=== PATIENT | female | born 1985 | race Caucasian/White ===

== ENCOUNTER 2019-03-25 17:58 | Inpatient (IN) | payer OTHER ==
[2019-03-25] MEDS ORDERED: DINOPROSTONE 10 MG VAGINAL INSERT.SR PV PRN (18:26)
[2019-03-25] MEDS ORDERED: RINGERS SOLUTION,LACTATED 300 ML IV ONE (18:26)
[2019-03-25] MEDS ORDERED: OXYTOCIN/NORMAL SALINE 20 UNIT/1,000 ML RTUINJ IV PRN (18:26)
[2019-03-25 19:06] LABS: APPEARANCE,URINE SLIGHTLY-CLOUDY; BILIRUBIN,URINE NEGATIVE (NEGATIVE); COLOR,URINE YELLOW; GLUCOSE, URINE NEGATIVE (NEGATIVE); KETONES,URINE NEGATIVE (NEGATIVE); LEUKOCYTE ESTERASE,URINE LARGE (NEGATIVE); NITRITE,URINE NEGATIVE (NEGATIVE); PROTEIN,URINE NEGATIVE (NEGATIVE); URINE SPECIFIC GRAVITY 1.024; UROBILINOGEN,URINE NEGATIVE mg/dL (<2.0)
[2019-03-25 19:22] LABS: URINE AMPHETAMINES SCREEN NEGATIVE; URINE BARBITURATES SCREEN NEGATIVE; URINE BENZODIAZEPINES SCREEN NEGATIVE; URINE COCAINE SCREEN NEGATIVE; URINE MARIJUANA (THC) SCREEN NEGATIVE; URINE METHADONE SCREEN NEGATIVE; URINE PHENCYCLIDINE SCREEN NEGATIVE
[2019-03-25 19:23] LABS: ABSOLUTE BASOPHILS # (AUTO) 0.1 10^3/uL (0.0-0.2); ABSOLUTE MONOCYTES (AUTO) 0.8 10^3/uL (0.1-1.4); ABSOLUTE NEUT (AUTO) 7.8 10^3/uL (1.7-8.2); BASOPHILS % (AUTO) 0.6 % (0-2); EOSINOPHILS % (AUTO) 0.4 % (0-6); HEMATOCRIT 35.5 % (36.0-47.0); HEMOGLOBIN 12.1 g/dL (12.0-15.5); LYMPHOCYTES % (AUTO) 19.1 % (13-45); MEAN CORPUSCULAR HEMOGLOBIN 31.4 pg (27.0-33.4); MEAN CORPUSCULAR HGB CONC 33.9 g/dL (32.0-36.0); MEAN CORPUSCULAR VOLUME 92 fl (80-97); MONOCYTES % (AUTO) 7.1 % (3-13); PLATELET COUNT 280 10^3/uL (150-450); RED BLOOD COUNT 3.85 10^6/uL (3.72-5.28); RED CELL DISTRIBUTION WIDTH 13.8 % (11.5-14.0); SEGMENTED NEUTROPHILS % (AUTO) 72.8 % (42-78); TOTAL CELLS COUNTED % (AUTO) 100 %; WHITE BLOOD COUNT 10.7 10^3/uL (4.0-10.5)
[2019-03-25 19:44] LABS: ALBUMIN 3.4 g/dL (3.5-5.0); ALKALINE PHOSPHATASE 96 U/L (38-126); ANION GAP 10 (5-19); ASPARTATE AMINO TRANSFERASE 24 U/L (14-36); BILIRUBIN,DIRECT 0.2 mg/dL (0.0-0.4); BILIRUBIN,TOTAL 0.3 mg/dL (0.2-1.3); BLOOD UREA NITROGEN 10 mg/dL (7-20); CALCIUM 8.8 mg/dL (8.4-10.2); CARBON DIOXIDE 20 mmol/L (22-30); CHLORIDE 104 mmol/L (98-107); GLUCOSE 72 mg/dL (75-110); POTASSIUM 4.9 mmol/L (3.6-5.0); TOTAL PROTEIN 5.9 g/dL (6.3-8.2)
[2019-03-25] MEDS ORDERED: DINOPROSTONE 10 MG VAGINAL INSERT.SR ONE (19:59)
--- NOTE | 2019-03-25 21:08 | Admission Physical ---
Datetime Report Generated by CPN: 03/25/2019 21:08 CURRENT ADMISSION Chief Complaint: Scheduled Induction of Labor Indication for Induction- Other: Cholestasis of Admit Impression : Term, Intrauterine Admit Plan: Initiate Labor Induction Protocol ALLERGIES Medication Allergies: Yes Medication Allergies: hydrocodone/Generalized colton (03/25/2019); oxycodone/Generalized colton (03/25/2019); acetaminophen/Generalized colton (03/25/2019) Latex: No Latex Allergies Food Allergies: none Environmental Allergies: none OBSTETRICAL HISTORY EDC: 04/02/2019 00:00 : 2 Para: 0 Term: 0 : 0 SAB: 1 IAB: 0 Ectopic: 0 Livin Cesareans: 0 VBACs: 0 Multiple Births: 0 Gestational Diabetes: No Rh Sensitization: No Incompetent Cervix: No KAMLA: No Infertility: No ART Treatment: No Uterine Anomaly: No IUGR: No Hx Previous C/S: No Macrosomia: No Hx Loss/Stillborn: No PIH: No Hx : No Placenta Previa/Abruption: No Depression/PP Depression: No PTL/PROM: No Post Hemorrhage: No Current Procedures: Ultrasound Obstetrical History Comments: G-1 SAB G-2 current cholestasis elevated bile acids SEE RECORDS Alcohol: No Marijuana : No Cocaine: No Other Illicit Drugs: No Cigarettes: Never Smoker. 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 Hand Surgery: Yes Heart Disease: No Hosp/Surgery: Yes Autoimmune Disorder: No Anesthetic Complications: No Kidney Disease: No Abnormal Pap Smear: Yes Neuro/Epilepsy: No Psychiatric Disorders: No Other Medical Diseases: Yes Hepatitis/Liver Disease: No Significant Family History: No Varicosities/Phlebitis: No Trauma/Violence : No Thyroid Dysfunction: No Medical History Comments: h/o gastric bypass, LEEP, cholestasis elevated bile acid INFECTIOUS HISTORY Gonorrhea: No Genital Herpes: Yes Chlamydia: No Tuberculosis: No Syphilis: No Hepatitis: No HIV/AIDS Exposure: No Rash or Viral Illness: No HPV: No Infectious History Comments: 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 PHYSICAL EXAM General: Normal HEENT: Normal Neurologic: Normal Thyroid: Normal Heart: Normal Lungs: Normal Breast: Normal Back: Normal Abdomen: Normal Genitourinary Exam: Normal Extremities: Normal DTRs: Normal Pelvic Type: Adequate Vital Signs: Reviewed; Within Normal Limits VAGINAL EXAM Dilatation: 1 Effacement: 50% MEMBRANES Membranes: Intact FETUS A EGA: 38.6 Monitoring: External US FHR- Baseline: 120s Variability: Moderate 6-25bpm Accelerations: 15X15 Decelerations: None FHR Category: Category I FHR Comments: none currently--one decel upon arrival Admit Comment: Pt here for a scheduled labor induction sec to Cholestasis of . She reports good movement. She is GBS Negative. PLANS FOR LABOR AND DELIVERY Labor and Delivery: None Pain Management: Medications; Epidural Feeding Preference: Breast Benefit of Breast Feed Discussed: Yes Circumcision: N/A INFORMED CONSENT Signature: with User ID: [email or web address]
[2019-03-25] MEDS ORDERED: OXYTOCIN 10 UNIT/ML VIAL ONE (22:43)
[2019-03-25] MEDS ORDERED: MISOPROSTOL 0.2 MG TABLET ONE (22:43)
[2019-03-25] MEDS ORDERED: OXYTOCIN/NORMAL SALINE 20 UNIT/1,000 ML RTUINJ ONE (22:44)
[2019-03-25] MEDS ORDERED: LIDOCAINE 1% INJ-PF (10 MG/ML) 30 ML SDV ONE (22:44)
[2019-03-25] MEDS ORDERED: NALBUPHINE HCL INJ 10 MG/1 ML AMPULE ONE (23:28)
[2019-03-26] MEDS ORDERED: NALBUPHINE HCL INJ 10 MG/1 ML AMPULE INJ ONE (00:30)
[2019-03-26] MEDS: RINGERS SOLUTION,LACTATED 1,000 ML IV PRN ×3 (01:13→08:15)
[2019-03-26] MEDS ORDERED: FENTANYL/BUPIVACAINE/NS/PF 300 MCG/150 ML RTUINJ EPI ONE (07:40)
[2019-03-26] MEDS ORDERED: BUPIVACAINE HCL 0.25 % INJ/PF (2.5 MG/1 ML) 30 ML VIAL ONE (07:40)
[2019-03-26] MEDS ORDERED: EPHEDRINE SULFATE INJ 50 MG/1 ML AMPULE ONE (07:40)
[2019-03-26] MEDS ORDERED: NALBUPHINE HCL INJ 10 MG/1 ML AMPULE ONE (14:05)
[2019-03-26] MEDS ORDERED: OXYTOCIN/NORMAL SALINE 20 UNIT/1,000 ML RTUINJ IV PRN (14:43)
[2019-03-26] MEDS ORDERED: MEASLES,MUMPS&RUBELLA VACC/PF 0.5 ML VIAL SUBCUT PRN (14:43)
[2019-03-26] MEDS ORDERED: MAGNESIUM HYDROXIDE SUSP 30 ML UDCUP PO PRN (14:43)
[2019-03-26] MEDS ORDERED: BENZOCAINE/MENTHOL AEROSOL SPRAY 56 ML TOP PRN (14:43)
[2019-03-26] MEDS ORDERED: NA PHOS,M-B/NA PHOS,DI-BA (ADULT) 133 ML ENEMA PR PRN (14:43)
[2019-03-26] MEDS ORDERED: DIPHENHYDRAMINE HCL 25 MG CAPSULE PO PRN (14:43)
[2019-03-26] MEDS ORDERED: PROMETHAZINE HCL 25 MG TABLET PO PRN (14:43)
[2019-03-26] MEDS ORDERED: PROMETHAZINE HCL INJ 25 MG/1 ML VIAL IV PRN (14:43)
[2019-03-26] MEDS ORDERED: GLYCERIN/WITCH HAZEL LEAF 1 EACH MED..WIPE TP PRN (14:43)
[2019-03-26] MEDS ORDERED: MISOPROSTOL 0.2 MG TABLET PR PRN (14:43)
[2019-03-26] MEDS ORDERED: PSEUDOEPHEDRINE HCL 30 MG TABLET PO PRN (14:43)
[2019-03-26] MEDS ORDERED: DIBUCAINE 1% OINTMENT 56 GM TP PRN (14:43)
[2019-03-26] MEDS ORDERED: DIPH/PERTUSS(ACELL)/TETANUS VAC/PF 0.5 ML SYR (>=10YO) IM PRN (14:43)
[2019-03-26] MEDS ORDERED: PROMETHAZINE HCL 25 MG SUPP.RECT PR PRN (14:43)
[2019-03-26] MEDS: DOCUSATE SODIUM 100 MG CAPSULE PO SCH (17:20)
[2019-03-26] MEDS: FERROUS SULFATE 325 MG TABLET PO SCH (17:21)
[2019-03-26] MEDS: FAMOTIDINE 20 MG TABLET PO SCH (22:30)
[2019-03-27 07:05] LABS: HEMOGLOBIN 10.6 g/dL (12.0-15.5); MEAN CORPUSCULAR HEMOGLOBIN 31.7 pg (27.0-33.4); MEAN CORPUSCULAR HGB CONC 34.2 g/dL (32.0-36.0); MEAN CORPUSCULAR VOLUME 93 fl (80-97); PLATELET COUNT 224 10^3/uL (150-450); RED BLOOD COUNT 3.34 10^6/uL (3.72-5.28); RED CELL DISTRIBUTION WIDTH 13.9 % (11.5-14.0); WHITE BLOOD COUNT 14.1 10^3/uL (4.0-10.5)
[2019-03-27 07:38] LABS: IGG SUBCLASS 1 351 mg/dL (248-810); IGG SUBCLASS 2 249 mg/dL (130-555); IGG SUBCLASS 3 27 mg/dL (15-102); IMMUNOGLOBULIN G 665 mg/dL (700-1600)
[2019-03-27] MEDS: ACETAMINOPHEN 325 MG TABLET PO PRN ×2 (08:39→21:12)
[2019-03-27] MEDS: PRENATAL VITAMIN W DHA CAPSULE PO SCH (09:23)
[2019-03-27] MEDS: DOCUSATE SODIUM 100 MG CAPSULE PO SCH ×2 (09:24→18:11)
[2019-03-27] MEDS: FERROUS SULFATE 325 MG TABLET PO SCH ×2 (09:24→18:11)
[2019-03-27] MEDS: FAMOTIDINE 20 MG TABLET PO SCH ×2 (09:24→21:13)
[2019-03-27] MEDS: SENNOSIDES/DOCUSATE 8.6-50 MG 1 EACH TABLET PO SCH (09:24)
[2019-03-27 09:36] LABS: IMMUNOGLOBULIN M 89 mg/dL (26-217)
--- NOTE | 2019-03-27 11:28 | PDOC PROGRESS REPORT ---
Subjective-OB Progress Note for:: 03/27/19 Subjective: 33yo s/p ppd1. Pt ambulating and voiding without difficulty. Reports pain well controlled with medication and vaginal soreness, no concerns at this time Physical Exam (OB) Vital Signs: Temp Pulse Resp BP Pulse Ox 97.7 F 82 17 119/76 98 03/27/19 07:30 03/27/19 07:30 03/27/19 07:30 03/27/19 07:30 03/27/19 07:30 Intake & Output 03/26/19 03/27/19 03/28/19 06:59 06:59 06:59 Intake Total 640 240 200 Balance 640 240 200 Weight 72.7 kg - General General Appearance: Appears well In distress: None - PIH/Pre-Eclampsia DTR's: 1 + Clonus: Negative Headache: Absent Epigastric Pain: No Visual Changes: No - Episiotomy/Laceration Site Condition: Well Approximated - Lochia Lochia Amount: Scant < 10 ml Lochia Color: Rubra/Red - Abdomen Description: Soft Hernia Present: No Fundal Description: Firm, Midline Fundal Height: u/u - u/2 - Respiratory Respiratory Status: No respiratory distress - Extremities Upper extremity: Normal inspection Lower extremities: Normal inspection - Neurological Cognition: Normal Orientation: AAOx4 - Psychological Associated symptoms: Normal affect, Normal mood Objective-Diagnostic Laboratory: 03/27/19 06:49 03/25/19 18:55 03/27/19 06:49 WBC 14.1 H RBC 3.34 L Hgb 10.6 L Hct 31.0 L MCV 93 MCH 31.7 MCHC 34.2 RDW 13.9 Plt Count 224 Assessment and Plan(PN) - Assessment and Plan (1) Acute blood loss anemia Is this a current diagnosis for this admission?: Yes Plan: increase dietary iron and supplementation as described by (2) Cholelithiasis affecting in third trimester, antepartum Is this a current diagnosis for this admission?: Yes Plan: delivered, monitor as discussed antenatally (3) History of NENO positive for HSV Is this a current diagnosis for this admission?: Yes Plan: on valtrex at time of delivery (4) Personal hx of gastric bypass Is this a current diagnosis for this admission?: Yes Plan: routine pp care (5) Vacuum extraction, delivered, current hospitalization Is this a current diagnosis for this admission?: Yes Plan: delivered - Time Spent with Patient Time with patient: Less than 15 minutes Medications reviewed and adjusted accordingly: Yes - Disposition Anticipated Discharge: Home Within: within 24 hours
[2019-03-28] MEDS: ACETAMINOPHEN 325 MG TABLET PO PRN (05:19)
[2019-03-28] MEDS: PRENATAL VITAMIN W DHA CAPSULE PO SCH (09:55)
[2019-03-28] MEDS: FAMOTIDINE 20 MG TABLET PO SCH (09:55)
[2019-03-28] MEDS: DOCUSATE SODIUM 100 MG CAPSULE PO SCH (09:55)
[2019-03-28] MEDS: SENNOSIDES/DOCUSATE 8.6-50 MG 1 EACH TABLET PO SCH (09:55)
[2019-03-28] MEDS: FERROUS SULFATE 325 MG TABLET PO SCH (09:55)
--- NOTE | 2019-03-28 10:10 | PDOC DISCHARGE SUMMARY ---
Final Diagnosis Discharge Date: 03/28/19 - Day #2, doing well, no complaints, A+, rubella immune, - Final Diagnosis (1) Acute blood loss anemia Is this a current diagnosis for this admission?: Yes (2) Cholelithiasis affecting in third trimester, antepartum Is this a current diagnosis for this admission?: Yes (3) History of NENO positive for HSV Is this a current diagnosis for this admission?: Yes (4) Personal hx of gastric bypass Is this a current diagnosis for this admission?: Yes (5) Vacuum extraction, delivered, current hospitalization Is this a current diagnosis for this admission?: Yes Discharge Data - Discharge Medication Prescriptions: Acetaminophen with Codeine [Tylenol with Codeine #3 Tablet] 1 each PO Q6 7 Days #28 tablet Home Medications: B12/FA/D3/Calc Cit/Zn Aa Chelt [Rx Balance Int Capsule] 1 cap PO DAILY PRN 03/25/19 Ergocalciferol (Vitamin D2) [Vitamin D] 1 tab PO DAILY 03/25/19 95/Iron Fum/Folic/Dha [ + Dha Combo Pack] 1 each PO DAILY 03/25/19 Acetaminophen with Codeine [Tylenol with Codeine #3 Tablet] 1 each PO Q6 7 Days #28 tablet 03/28/19 Reason(s) for Admission: Onset of Labor Procedures: Ultrasound Intrapartum Procedure(s): Spontaneous Vaginal Delivery Complication(s): Laceration-Perineal Laceration-Degree: 2nd - Diagnosis Test Laboratory: Temp Pulse Resp BP Pulse Ox 97.6 F 69 16 97/64 L 98 03/28/19 07:22 03/28/19 07:22 03/28/19 07:22 03/28/19 07:22 03/28/19 07:22 03/25/19 03/25/19 03/27/19 18:14 18:55 06:49 RBC 3.85 3.34 L Hgb 12.1 10.6 L Hct 35.5 L 31.0 L Urine Opiates Screen NEGATIVE - Discharge information/Instructions Discharge Activity: Activity As Tolerated, No Lifting Over 10 Pounds, Pelvic Rest Discharge Diet: As Tolerated, Regular Disposition: HOME, SELF-CARE Follow up with: [facility] in: 4, Weeks
[2019-03-28 11:48] VITALS: BP 110/74
--- NOTE | 2019-04-02 11:17 | Delivery Summary ---
Del Sum A-C Datetime Report Generated by CPN: 04/02/2019 11:16 DELIVERY PERSONNEL DELIVERY PERSONNEL: [id number] Delivery Doctor:: Sara Vila MD Nurse Sales Officer Certified:: Yadi Hernandez CNM Labor and Delivery Nurse:: Patricia Welch RNstreet engineer Nurse:: Tracey Landa RN Nursery Nurse:: Liyah Merino RN Nursery Nurse:: Kinza Oleary RN Glue Drier Operator/BLENDING TANK TENDER HELPER: Micaela Pedro SOLDER MAKING LABORER Glue Drier Operator/BLENDING TANK TENDER HELPER: Ethan Maryam, SOLDER MAKING LABORER MATERNAL INFORMATION Delivery Anesthesia: Epidural Medications After Delivery: Pitocin Bolus-Please Comment; Pitocin Drip 20 Units/1000ml NSS; Cytotec 600mcg Per Rectum/Vagina Meds After Delivery Comment: Nubain 10 mg IV Delivery QBL: 325 Maternal Complications: None Provider Comments: Called to room with pt having a strong urge to pusk, + 2, having late deceleration, Dr. Vila called, VE used to bring baby to perineum and I delivered baby from OA to ROLY over ML lac, Baby placed on mothers abd, coed clamped and cut by FOB after 2 minutes, Spont del of small placenta, intact, sent to pathology along with cord blood 2nd degree laceration repaired with 2-0 chromic without difficulty, rectum patent, cervix intact Cytotec 600 mcg via rectum, FFFM baby and mom remain in recovery in stable condition (Annotations: Data stored by CPN on behalf of user) LABOR SUMMARY EDC: 04/02/2019 00:00 No. Babies in Womb: 1 Attempted: No Labor Anesthesia: Epidural LABOR INFORMATION Reason for Induction: Other Reason for Induction- Other: CHOLESTASIS Onset of Labor: 03/26/2019 08:46 Complete Dilatation: 03/26/2019 13:24 Cervical Ripening Agents: Cervidil Oxytocin: Induction Group B Beta Strep: negative Antibiotics # of Doses: 0 Steroids Given: None Reason Steroids Not Administered: Not Applicable MEMBRANES Membranes Rupture Method: Artificial Rupture of Membranes: 03/26/2019 10:31 Length of Rupture (hr): 3.48 Amniotic Fluid Color: Clear Amniotic Fluid Amount: Small Amniotic Fluid Odor: Normal STAGES OF LABOR Stage 1 hr: 4 Stage 1 min: 38 Stage 2 hr: 0 Stage 2 min: 36 Stage 3 hr: 0 Stage 3 min: 5 Total Time in Labor hr: 5 Total Time in Labor min: 19 VAGINAL DELIVERY Episiotomy: None Laceration Extension #1: Second Degree Other Laceration: MIDLINE Laceration Repair: Yes Laceration Repair Note: repaired with 2-0 chromic using Xylocaine for anesthesia and Nubain 10 mg Sponge Count Correct: N/A Sharps Count Correct: N/A CSECTION DELIVERY Primary Indication: N/A Secondary Indication: N/A CSection Incidence: N/A Labor: N/A Elective: N/A CSection Incision: N/A BABY A INFORMATION Delivery Date/Time: 03/26/2019 14:00 Method of Delivery: Vaginal Born in Route : No : N/A Forceps: N/A Vacuum Extraction: Successful Shoulder Dystocia : No PRESENTATION/POSITION BABY A Presentation: Cephalic Cephalic Presentation: Vertex Vertex Position: Left Occipital Anterior Breech Presentation: N/A PLACENTA INFORMATION BABY A Placenta Delivery Time : 03/26/2019 14:05 Placenta Method of Delivery: Spontaneous Placenta Status: Delivered SCORES BABY A Heart Rate 1 min: >100 bpm Resp Effort 1 min: Good Cry Reflex Irritability 1 min: Cough or Sneeze or Pulls Away Muscle Tone 1 min: Active Motion Color 1 min: Blue/Pale Resuscitation Effort 1 min: Tactile Stimulation SCORE 1 MIN: 8 Heart Rate 5 min: >100 bpm Resp Effort 5 min: Good Cry Reflex Irritability 5 min: Cough or Sneeze or Pulls Away Muscle Tone 5 min: Active Motion Color 5 min: Body [place], Extremities Blue Resuscitation Effort 5 min: Tactile Stimulation SCORE 5 MIN: 9 INFANT INFORMATION BABY A Gestational Age at Delivery: 39.0 Gestational Status: Full Term- 39- 40.6 Weeks Outcome : Liveborn Condition : Stable Infant Sex: Female IDENTIFICATION BABY A Infant Verification Date/Time: 03/26/2019 14:29 ID Band Number: [id number] Mother's Name Verified: Yes RN Verifying : , RN Additional Verifying Personnel: Radhames SOLDER MAKING LABORER WEIGHT/LENGTH BABY A Infant Birthweight (gm): 2854 Weight (lb): 6 Infant Weight (oz): 5 Infant Length (in): 19.00 Length (cm): 48.26 CORD INFORMATION BABY A No. Cord Vessels: 3 Nuchal Cord : N/A Cord Blood Taken: Yes-For Storage (Mom's Blood type +) Infant Suction: None ASSESSMENT BABY A Complications: Multiple Late Decels; Multiple Variable Decels; Other Infant Complications- Other: OCC PROLONGED DECELS TERMINAL MECONIUM Physical Findings at Delivery: Caput Succedaneum; Molding of the Head Infant Respirations: Appears Normal Skin to Skin: Yes Quantitative Developer/ALS Called : No Infant Care By: Rahel MERINO RN/ Barb OLEARY RN Transferred To: Remains with Mother BABY B INFORMATION : N/A
--- NOTE | 2019-04-02 13:43 | Delivery Summary ---
Del Sum A-C Datetime Report Generated by CPN: 04/02/2019 13:43 DELIVERY PERSONNEL DELIVERY PERSONNEL: [id number] Delivery Doctor:: Sara Vila MD Nurse Diamond Setter Certified:: Yadi Hernandez CNM Labor and Delivery Nurse:: Patricia Welch RNnetwork control technician Nurse:: Tracey Landa RN Nursery Nurse:: Liyah Merino RN Nursery Nurse:: Kinza Oleary RN School Photograph Editor/SITE HEAD: Micaela Pedro EDGE BONDER School Photograph Editor/SITE HEAD: Ethan Maryam, EDGE BONDER MATERNAL INFORMATION Delivery Anesthesia: Epidural Medications After Delivery: Pitocin Bolus-Please Comment; Pitocin Drip 20 Units/1000ml NSS; Cytotec 600mcg Per Rectum/Vagina Meds After Delivery Comment: Nubain 10 mg IV Delivery QBL: 325 Maternal Complications: None Provider Comments: Called to room with pt having a strong urge to pusk, + 2, having late deceleration, Dr. Vila called, VE used to bring baby to perineum and I delivered baby from OA to ROLY over ML lac, Baby placed on mothers abd, coed clamped and cut by FOB after 2 minutes, Spont del of small placenta, intact, sent to pathology along with cord blood 2nd degree laceration repaired with 2-0 chromic without difficulty, rectum patent, cervix intact Cytotec 600 mcg via rectum, FFFM baby and mom remain in recovery in stable condition (Annotations: Data stored by CPN on behalf of user) LABOR SUMMARY EDC: 04/02/2019 00:00 No. Babies in Womb: 1 Attempted: No Labor Anesthesia: Epidural LABOR INFORMATION Reason for Induction: Other Reason for Induction- Other: CHOLESTASIS Onset of Labor: 03/26/2019 08:46 Complete Dilatation: 03/26/2019 13:24 Cervical Ripening Agents: Cervidil Oxytocin: Induction Group B Beta Strep: negative Antibiotics # of Doses: 0 Steroids Given: None Reason Steroids Not Administered: Not Applicable MEMBRANES Membranes Rupture Method: Artificial Rupture of Membranes: 03/26/2019 10:31 Length of Rupture (hr): 3.48 Amniotic Fluid Color: Clear Amniotic Fluid Amount: Small Amniotic Fluid Odor: Normal STAGES OF LABOR Stage 1 hr: 4 Stage 1 min: 38 Stage 2 hr: 0 Stage 2 min: 36 Stage 3 hr: 0 Stage 3 min: 5 Total Time in Labor hr: 5 Total Time in Labor min: 19 VAGINAL DELIVERY Episiotomy: None Laceration Extension #1: Second Degree Other Laceration: MIDLINE Laceration Repair: Yes Laceration Repair Note: repaired with 2-0 chromic using Xylocaine for anesthesia and Nubain 10 mg Sponge Count Correct: N/A Sharps Count Correct: N/A CSECTION DELIVERY Primary Indication: N/A Secondary Indication: N/A CSection Incidence: N/A Labor: N/A Elective: N/A CSection Incision: N/A BABY A INFORMATION Delivery Date/Time: 03/26/2019 14:00 Method of Delivery: Vaginal Born in Route : No : N/A Forceps: N/A Vacuum Extraction: Successful Shoulder Dystocia : No PRESENTATION/POSITION BABY A Presentation: Cephalic Cephalic Presentation: Vertex Vertex Position: Left Occipital Anterior Breech Presentation: N/A PLACENTA INFORMATION BABY A Placenta Delivery Time : 03/26/2019 14:05 Placenta Method of Delivery: Spontaneous Placenta Status: Delivered SCORES BABY A Heart Rate 1 min: >100 bpm Resp Effort 1 min: Good Cry Reflex Irritability 1 min: Cough or Sneeze or Pulls Away Muscle Tone 1 min: Active Motion Color 1 min: Blue/Pale Resuscitation Effort 1 min: Tactile Stimulation SCORE 1 MIN: 8 Heart Rate 5 min: >100 bpm Resp Effort 5 min: Good Cry Reflex Irritability 5 min: Cough or Sneeze or Pulls Away Muscle Tone 5 min: Active Motion Color 5 min: Body [place], Extremities Blue Resuscitation Effort 5 min: Tactile Stimulation SCORE 5 MIN: 9 INFANT INFORMATION BABY A Gestational Age at Delivery: 39.0 Gestational Status: Full Term- 39- 40.6 Weeks Outcome : Liveborn Condition : Stable Infant Sex: Female IDENTIFICATION BABY A Infant Verification Date/Time: 03/26/2019 14:29 ID Band Number: [id number] Mother's Name Verified: Yes RN Verifying : , RN Additional Verifying Personnel: Radhames EDGE BONDER WEIGHT/LENGTH BABY A Infant Birthweight (gm): 2854 Weight (lb): 6 Infant Weight (oz): 5 Infant Length (in): 19.00 Length (cm): 48.26 CORD INFORMATION BABY A No. Cord Vessels: 3 Nuchal Cord : N/A Cord Blood Taken: Yes-For Storage (Mom's Blood type +) Infant Suction: None ASSESSMENT BABY A Complications: Multiple Late Decels; Multiple Variable Decels; Other Infant Complications- Other: OCC PROLONGED DECELS TERMINAL MECONIUM Physical Findings at Delivery: Caput Succedaneum; Molding of the Head Infant Respirations: Appears Normal Skin to Skin: Yes Marketing Communications Manager/ALS Called : No Infant Care By: Rahel MERINO RN/ Barb OLEARY RN Transferred To: Remains with Mother BABY B INFORMATION : N/A
== END 2019-03-28 13:50 | disposition home or self-care (01) | DRG 805 ==
LOC: LR 17:58 → 2S 03-26 16:34
PROVIDERS: ADMIT Obstetrics & Gynecology; ATTEND Obstetrics & Gynecology
PROC: 10D07Z6 Extraction of Products of Conception, Vacuum, Via Natural or Artificial Opening (ICD-10-PCS; principal; 2019-03-26)
PROC: 0KQM0ZZ Repair Perineum Muscle, Open Approach (ICD-10-PCS; 2019-03-26)
DX: O26.62 Liver and biliary tract disorders in childbirth (principal); K83.1 Obstruction of bile duct; Z37.0 Single live birth; O98.52 Other viral diseases complicating childbirth; D62 Acute posthemorrhagic anemia; O76 Abnormality in fetal heart rate and rhythm complicating labor and delivery; O99.02 Anemia complicating childbirth; O70.1 Second degree perineal laceration during delivery; O77.0 Labor and delivery complicated by meconium in amniotic fluid; O99.844 Bariatric surgery status complicating childbirth; B00.9 Herpesviral infection, unspecified; Z3A.38 38 weeks gestation of pregnancy
CPT/HCPCS: 36415; 80053; 80307; 81005; 82784; 82787; 85025; 85027; 86592; 86850; 86900; 86901; 88307; 94760; C1758; J2300; J2590; J3010; J3490

== ENCOUNTER → 2019-10-22 | Outpatient (CLI) | payer OTHER ==
--- NOTE | 2019-10-22 16:21 | RADIOLOGY REPORT (SQ) ---
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 Selected additional c olor/power Doppler images recorded. All images stored to PACS. LIMITATIONS: None. FINDINGS: RIGHT LOBE: Right lobe thyroid is 5.5 x 2.2 x 1.5 cm in size. Homogeneous echotexture. T here are 3 benign colloid cysts (TI-RADS 1) as follows: 6 x 4 mm right upper pole, 7 x 6 mm right mi dpole, 5 x 4 mm right lower pole. LEFT LOBE: Normal size, 4.9 x 1.5 x 1.3 cm. Homogeneous echotexture. No cystic or solid masses. ISTHMUS: Normal size, 2 mm in thickness. Homogeneous echotexture. No cystic or solid masses. OTHER: No other significant finding. IMPRESSION: Subcentimeter benign colloid cysts right lobe thyroid COMMENT: The [employer] ([employer]) Thyroid Imaging Reporting And Data System (TI-RADS ) is an ultrasound feature based summed scoring system of risk categorization and management recommen dations for thyroid nodules. TI-RADS assessment categories are as follows: 0 - Incomplete exam: Additional imaging or comparison to prior examinations recommended. 1. - Benign: Fine-needle aspiration or follow-up not routinely recommended in the absence of clinical change. 2. - Not suspicious: Fine-needle aspiration or follow-up not routinely recommended in the absence of clinical change. 3. - Mildly suspicious: Fine-needle aspiration recommended if greater than or equal to 2.5 cm in size . Ultrasound follow-up recommended if greater than or equal to 1.5 cm in size. 4. - Moderately suspicious: Fine-needle aspiration recommended if greater than or equal to 1.5 cm in size. Ultrasound follow-up recommended if greater than or equal to 1.0 cm in size. 5. - Highly suspicious: Fine-needle aspiration recommended if greater than or equal to 1.0 cm in size . Ultrasound follow-up recommended if greater than or equal to 0.5 cm in size. TECHNICAL DOCUMENTATION: JOB ID: [id number] [employer]- All Rights Reserved Reading location - IP/workstation name: [id number]
== END ==
LOC: RAD 15:19
PROVIDERS: ATTEND Obstetrics & Gynecology
DX: E04.9 Nontoxic goiter, unspecified (principal)
CPT/HCPCS: 76536